=== PATIENT | female | born 1985 | race Two or more races ===

== ENCOUNTER 2017-02-16 20:48 | Emergency (ER) | payer BC ==
[~2017-02-16] VITALS: Ht 172.7 cm; Wt 72.6 kg
[2017-02-16 21:09] VITALS: BP 123/84
[2017-02-16] MEDS ORDERED: Fluorescein Strips LEFT EYE ONE (21:15)
[2017-02-16 21:20] VITALS: BP 123/84
[2017-02-16] MEDS ORDERED: HYDROCODON-ACE1 EA15 ORAL (21:33)
--- NOTE | 2017-02-16 21:34 | Emergency Room Report ---
History of Present Illness General Chief Complaint: Eye Problems Source: Patient Present Illness HPI Is a 31-year-old female with no significant past medical history. She present with left eye pain. Her baby daughter poked in the eye. This occur few hours prior to arrival. Now is very painful. Worse with blinking. Denies any nausea vomiting. Denies any other complaint. Pain is 10 out of 10. Worse with light. Allergies: Coded Allergies: No Known Allergies (Unverified , 02/16/17) Patient History Past Medical History: see triage record, old chart reviewed Past Surgical History: other Pertinent Family History: none Social History: Denies: smoking Now: No Immunizations: other Reviewed Nursing Documentation: PMH: Agreed, PSxH: Agreed Nursing Documentation-PMH Past Medical History: No Stated History Review of Systems Eye: Reports: eye pain, Denies: blurred vision ENT: Denies: ear pain, nose congestion, throat swelling Respiratory: Denies: cough, shortness of breath Cardiovascular: Denies: chest pain, palpitations Gastrointestinal: Denies: abdominal pain, diarrhea, nausea, vomiting Musculoskeletal: Denies: back pain, joint pain Skin: Denies: rash Neurological: Denies: headache, numbness Endocrine: Denies: increased thirst, increased urine Hematologic/Lymphatic: Denies: easy bruising All Other Systems: negative except mentioned in HPI Physical Exam Vital Signs Date Time Temp Pulse Resp B/P Pulse Ox O2 Delivery O2 Flow Rate FiO2 02/16/17 21:09 97.9 71 16 123/84 98 Room Air vitals normal Sp02 EP Interpretation: reviewed, normal General Appearance: well appearing, no apparent distress, alert Head: normocephalic, atraumatic Eyes: left eye other - Patient with corneal abrasion at the 11:00 to 12:00 position. Measure about 2 to 3 mm., bilateral eye EOMI, bilateral eye PERRL ENT: hearing grossly normal, normal pharynx Neck: full range of motion, supple, no meningismus Respiratory: chest non-tender, lungs clear, normal breath sounds Cardiovascular #1: regular rate, rhythm, no murmur Gastrointestinal: normal bowel sounds, non tender, no mass, no organomegaly, no bruit, non-distended Musculoskeletal: back normal, gait/station normal, normal range of motion Neurologic: alert, oriented x3 Psychiatric: mood/affect normal Skin: warm/dry Medical Decision Making Diagnostic Impression: Primary Impression: Cornea abrasion Qualified Codes: S05.02XA - Injury of conjunctiva and corneal abrasion without foreign body, left eye, initial encounter ER Course Patient with a cornea abrasion. Negative Kin sign. No foreign body. Better after eyedrops. She started using erythromycin ointment at home already. We'll continue with that. We'll put on eye patch. Last Vital Signs Date Time Temp Pulse Resp B/P Pulse Ox O2 Delivery O2 Flow Rate FiO2 02/16/17 21:09 97.9 71 16 123/84 98 Room Air Status: improved Disposition: HOME, SELF-CARE Condition: Stable Scripts Hydrocodone/Acetaminophen 5-325* (HYDROCODONE/ACETAMINOPHEN 5-325*) 1 Each Tablet 1 TAB ORAL Q6H Y for For Pain, #10 TAB 0 Refills Prov: LEO DUKES M.D. 02/16/17 Additional Instructions: Followup with cap and stud machine operator in 2 days if not better. Wear eye patch as needed for pain. Return if worse. Continue with antibiotic ointment for your eyes. LEO DUKES M.D. February 16, 2017 21:34
== END 2017-02-16 21:51 | disposition home or self-care (01) ==
LOC: EMR 21:33
DX: S05.02XA Injury of conjunctiva and corneal abrasion without foreign body, left eye, initial encounter (principal); W50.0XXA Accidental hit or strike by another person, initial encounter; Y93.9 Activity, unspecified; Y92.9 Unspecified place or not applicable
CPT/HCPCS: 99283